=== PATIENT | male | born 1955 | race Caucasian/White ===

== ENCOUNTER → 2017-09-26 | Outpatient (CLI) | payer OTHER | END | disposition home or self-care (01) | LOC: CFH 11:51 | PROVIDERS: ATTEND Physician Assistant | DX: S53.31XA Traumatic rupture of right ulnar collateral ligament, initial encounter (principal); S60.011A Contusion of right thumb without damage to nail, initial encounter; W19.XXXA Unspecified fall, initial encounter; Y93.89 Activity, other specified; Y92.89 Other specified places as the place of occurrence of the external cause; Y99.8 Other external cause status ==